=== PATIENT | female | born 1945 | race Caucasian/White ===

== ENCOUNTER → 2020-05-28 | Outpatient (CLI) | payer MEDICARE | LOC: M.MRI 07:16 | PROVIDERS: ATTEND Orthopaedic Surgery | DX: S83.281A Other tear of lateral meniscus, current injury, right knee, initial encounter (principal); S83.241A Other tear of medial meniscus, current injury, right knee, initial encounter; M17.0 Bilateral primary osteoarthritis of knee; M11.061 Hydroxyapatite deposition disease, right knee; M25.461 Effusion, right knee; X58.XXXA Exposure to other specified factors, initial encounter; Y93.89 Activity, other specified; Y92.89 Other specified places as the place of occurrence of the external cause; Y99.8 Other external cause status ==

== ENCOUNTER → 2020-06-10 | Outpatient (CLI) | payer MEDICARE ==
[~2020-06-10] MED LIST: ALPRAZOLAM 0.0.25 M1 PO; DULCOLAX STOOL100 M1 PO; LEVOXYL175 MCG PO; LIPITOR 20 MG T20 M1 PO; OXYBUTYNIN 5 MG5 M2 PO; PERCOCET 5-3251 EACH PO; PRINIVIL40 MG PO; REQUIP 0.25 M0.25 M1 PO; SERTRALINE HCL100 MG PO; XARELTO10 M1 PO
[2020-06-10 11:08] LABS: HEMATOCRIT 44.8 % (37.0-47.0); HEMOGLOBIN 15.6 gm/dL (12.0-15.0); MCH 32.3 pg (26.0-34.0); MCHC 34.9 g/dL (28.0-37.0); MCV 92.5 fL (80.0-100.0); MPV 7.1 fl. (7.2-11.1); RBC 4.84 mil/uL (4.20-5.00); WBC 8.4 thou/uL (4.0-11.0)
[2020-06-10 11:18] LABS: PROTIME 10.3 Seconds (9.20-11.50)
[2020-06-10 11:23] LABS: ALBUMIN 3.8 g/dL (3.4-5.0); CALCIUM 8.9 mg/dL (8.5-10.1); POTASSIUM 4.2 mmol/L (3.5-5.1); TOTAL BILIRUBIN 0.3 mg/dL (<0.1-1.0); TOTAL PROTEIN 7.2 g/dL (6.4-8.2)
[2020-06-10 11:36] LABS: URINE BILIRUBIN NEGATIVE (Negative); URINE BLOOD NEGATIVE (Negative); URINE CLARITY CLEAR; URINE COLOR YELLOW; URINE GLUCOSE-RANDOM NEGATIVE (Negative); URINE KETONES NEGATIVE (Negative); URINE LEUKOCYTES-REFLEX 1+ (Negative); URINE NITRITE-REFLEX NEGATIVE (Negative); URINE PROTEIN NEGATIVE (Negative); URINE UROBILINOGEN 0.2 E.U./dl (0.2-1.0)
[2020-06-10 11:43] LABS: SQUAMOUS 0-3 Few /LPF (0-3); URINE WBC-REFLEX 0-5 Rare /HPF (0-5)
[2020-06-10 11:44] LABS: BACTERIA-REFLEX 1-9 Few /HPF (None Seen); CASTS None Seen /LPF (None Seen); MUCUS 4-6 Moderate strn/LPF (None Seen); URINE RBC 0-2 Rare /HPF (0-2)
[2020-06-10 11:45] LABS: CRYSTALS None Seen /LPF (None Seen)
== END ==
LOC: M.LAB 10:16
PROVIDERS: ATTEND Orthopaedic Surgery
DX: Z01.812 Encounter for preprocedural laboratory examination (principal); Z20.828 Contact with and (suspected) exposure to other viral communicable diseases; M17.11 Unilateral primary osteoarthritis, right knee

== ENCOUNTER 2020-06-17 06:54 | Inpatient (IN) | payer MEDICARE ==
--- NOTE | 2020-06-10 12:27 | EKG ---
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
[~2020-06-17] VITALS: Ht 165.1 cm; Wt 92.5 kg
[~2020-06-17 06:54] MED LIST changes: -DULCOLAX STOOL100 M1 PO; -XARELTO10 M1 PO
[2020-06-17 14:30] VITALS: BP 108/56
--- NOTE | 2020-06-17 19:49 | NUR ---
PT RECIEVEDFROM PACU IN ROOM 106. ALERT AND ORIENTED X4 AND DROWSY. DENIES PAIN. CALL LIGHT WITHIN REACH AND BED IN LOW POSITION. HOURLY ROUNDING DONE FOR PT SAFETY.
[2020-06-17 21:05] VITALS: BP 114/71
[2020-06-18] VITALS (9 sets, daily range): BP systolic 107–161; BP diastolic 53–71
--- NOTE | 2020-06-18 05:09 | NUR ---
ALERT AND ORIENTED. USES BEDPAN AT NIGHT. PAIN WAS RATED 7/10 MOST ASSESSMENTS. USES PAIN MEDS AT HOME FOR CHRONIC KNEE PAIN. RECEIVED PERCOCET Q4. SCD'S IN PLACE. DRAIN TO D/C TUESDAY. HEMOVAC ON RIGHT SIDE OF KNEE. POLAR PACK USED. HOB ELEVATED. INCISION SITE XEROFOAM, MEPALEX IS C/D/I. RECEIVED ALL ABX AND FLUIDS SCHEDULED. WILL CONTINUE TO MONITOR.
[2020-06-18 06:24] LABS: HEMATOCRIT 38.2 % (37.0-47.0); HEMOGLOBIN 13.1 gm/dL (12.0-15.0)
[2020-06-18] MEDS ORDERED: DULCOLAX STOOL100 M1 PO (12:51)
[2020-06-18] MEDS ORDERED: XARELTO10 M1 PO (12:51)
--- NOTE | 2020-06-18 15:36 | NUR ---
cm completed initial assessment to discuss d/c planning. pt lives at home w/spuose. pt is semi-active. pt is independent w/adls. pt's spouse does cleaning and runs errands. pt has walker w/seat, ice machine and cane. pt signed vendor of choice form for [employer] . cm sent referral to [employer] ([phone]), and pt was accepted per maru. pt notified. D/c orders need to been sent was entered by the doctor. cm to cont to follow.
--- NOTE | 2020-06-18 17:25 | NUR ---
HEMO VAC REMOVED PER ORDER. IVF STOPPED. PT UP FREQUENTLY TO BSC. PROGRESSING TOWARDS GOALS.
--- NOTE | 2020-06-18 21:16 | OP ---
[facility] [address] [place] [address] OPERATIVE REPORT Name: ADAM HAMADI Room: [address] M.R.#: [id number] Admission: 06/17/20 Attend Phys: Anne Ordonez Discharge: Date of : 45 Report #: [id number] THIS REPORT FOR: //name// cc: Anya Gonzalez MD, Ghazal A. MD ~ THIS REPORT FOR: //name// CC: Anya Gilliland DATE OF SERVICE: 06/17/2020 PREOPERATIVE DIAGNOSIS: Right knee osteoarthritis. POSTOPERATIVE DIAGNOSIS: Right knee osteoarthritis. PROCEDURE: Right total knee arthroplasty. SURGEON: Kash Ibarra II, DO DIRECTOR OF COMPENSATION: CARROLL Gallagher. ANESTHESIA: General endotracheal. ESTIMATED BLOOD LOSS: 50 mL. ANTIBIOTICS: Ancef preoperatively. DRAINS: Medium Hemovac. COMPLICATIONS: None. CONDITION OF THE PATIENT: Stable to recovery room. IMPLANTS: Listed in operative record and progress note. BRIEF HISTORY: The patient was seen in the preoperative area. Preoperative H and P was performed. Site was marked, questions were answered. Risks and benefits were discussed with the patient in detail about surgery. The patient wished to proceed, assuming all risks. DESCRIPTION OF PROCEDURE: The patient was taken to the operative suite and placed supine on the operating table, given appropriate anesthesia. A well-padded tourniquet was applied to the upper thigh, which was inflated to 300 mmHg after gravity exsanguination. The operative knee was sterilely prepped and [facility] [address] [place] [address] OPERATIVE REPORT Name: ADAM AHMADI Jensen Room: [address] IN [facility].#: [id number] Admission: 06/17/20 Attend Phys: Anne Ordonez Discharge: Date of : 45 Report #: [id number] draped. Surgery began by midline incision. This was carried down to the subcutaneous tissues. A medial parapatellar arthrotomy was performed and carried down to bone. The patella was then everted and excess soft tissues were removed from around the femur. Femoral cutting block was then applied, checked with a drop jose for rotational alignment, pinned in appropriate position and appropriate cuts were made. A 4-in-1 cutting block was then applied, checked for rotational alignment, pinned in appropriate position and appropriate cuts were made. The tibia was then exposed. Excess meniscus was removed. Retractors were placed along the collateral ligaments. The tibial cutting block was then applied, pinned in appropriate position, checked with a drop jose for rotational alignment and slope and appropriate cut was made. The tibial bone was removed. The tibial base plate was then applied, checked for rotational alignment with a drop jose and pinned in appropriate position. The femur was then applied and box cut was reamed. This was then trialed with appropriate spacer, which showed excellent fit and fill and excellent stability of the knee through all range of motion. The patella was reamed in appropriate fashion and sized to appropriate size. Three peg holes were drilled and it was then trialed and showed excellent flexion, extension, excellent tracking of the patella within the groove. These trials were then removed. The tibia was punched in appropriate fashion. Bone ends were cleansed with Pulsavac irrigation and cement was mixed and applied to final implants. These were then malleted into position and held the knee in extension and compressed to allow cement to cure. After it cured, excess was removed using a [place] and osteotome. Wound was then copiously irrigated and the final spacer was malleted into position. The tourniquet was deflated. Hemostasis was obtained with electrocautery. Pain cocktail was injected. PRP gel sprayed throughout internal aspects of the knee. Medium Hemovac drain was applied. Capsule was closed with #2 FiberWire and #1 Vicryl in [id number] fashion. Skin was closed with 2-0 Vicryl and running 3-0 Monocryl. Dermabond and sterile dressing applied. Zoltan wrap and PolarCare applied. The patient transported to recovery room in stable condition. Counts were correct throughout the procedure. <ELECTRONICALLY SIGNED> By: Kash Ibarra II, 06/18/20 2116 [id number] [id number] Ibarra II DO /nt
--- NOTE | 2020-06-19 04:26 | NUR ---
PT PAIN WELL MANAGED RATED 3/10 THIS AM. UP STANDBY WITH WALKER TO THE BATHROOM. ROOM AIR, SALINE LOCKED IV LFA. ALERT AND ORIENTED. POLAR PACK/SHOAIB HOSE IN PLACE. PLAN IS TO DISCHARGE TODAY. WILL CONTINUE TO FOLLOW PLAN OF CARE.
[2020-06-19 06:09] LABS: HEMATOCRIT 34.6 % (37.0-47.0); HEMOGLOBIN 12.1 gm/dL (12.0-15.0)
[2020-06-19 08:00] VITALS: BP 139/81
[2020-06-19 16:00] VITALS: BP 152/79
--- NOTE | 2020-06-19 18:21 | NUR ---
PT A&Ox4, DOES NOT PROCESS COMMANDS WELL WHILE AMBULATING. WILL NEED THERAPY TOMORROW TO RETURN HOME SAFELY. IV PATENT. PAIN CONTROLLED. DENIED N/V. TOLERATING DIET. DRESSING C/D/I. FALL PRECAUTIONS IN PLACE. CALL LIGHT WITHIN REACH. WILL CONTINUE TO MONITOR.
[2020-06-19 20:00] VITALS: BP 169/83
--- NOTE | 2020-06-20 05:50 | NUR ---
PT A&O. MEDS GIVEN ORDERED. PAIN MANAGED WITH PERCOCET. RT KNEE DRESSING C/D/I. SHOAIB J[place], POLAR PACK IN PLACE. UP TO BSC WITH STANDBY ASSIST. PT ON CPM AT THIS MOMENT. CALL LIGHT WITHIN REACH. WILL CONTINUE TO MONITOR.
[2020-06-20 09:01] VITALS: BP 161/68
[2020-06-20 09:34] VITALS: BP 159/76
[2020-06-20 16:23] VITALS: BP 161/68
--- NOTE | 2020-06-20 17:01 | NUR ---
CM SPOKE TO THE PT TO DISUCSS DISCHARGE PLANNING, DME, AND HH. CM ARRANGED HH WITH [facility]. CM FAXED PT'S D/C ORDERS. [facility] TO CALL PT'S SON TO ARRANGE TIME TO VISIT. ELTON SPOKE TO [employer] AND RECEIVED APPROVAL FOR [employer]. PT TO DISPENSE WALKER TO PT. PT TO D/C HOME TODAY. CM WILL REMAIN AVAILABLE TO ASSIST AND FOLLOW NEEDED.
--- NOTE | 2020-06-20 17:55 | NUR ---
PT DISCHARGED TO HOME WITH HH BY WHEEL CHAIR WITH NURSING STAFF AND . IV OUT. PAIN CONTROLLED. DENIED NAUSEA. TOLERATING DIET. DRESSING C/D/I. PERSONAL BELONGINGS SENT WITH PT. PAPER SCRIPT SENT WITH PT.
== END 2020-06-20 18:10 | disposition home health service (06) | DRG 470 ==
LOC: M.PRE → M.ORTHSURG 06:54 → M.TBA 06:54 → M.PRE 07:17 → M.ORTHSURG 14:29 → M.PRE 17:23 → M.ORTHSURG 06-20 18:10
PROVIDERS: Orthopaedic Surgery; ADMIT Internal Medicine; ATTEND Internal Medicine
PROC: 0SRC0J9 Replacement of Right Knee Joint with Synthetic Substitute, Cemented, Open Approach (ICD-10-PCS; principal; 2020-06-17)
DX: M17.0 Bilateral primary osteoarthritis of knee (principal); E03.9 Hypothyroidism, unspecified; F32.9 Major depressive disorder, single episode, unspecified; I10 Essential (primary) hypertension; E78.00 Pure hypercholesterolemia, unspecified; G89.29 Other chronic pain; F17.210 Nicotine dependence, cigarettes, uncomplicated; E66.9 Obesity, unspecified; F41.1 Generalized anxiety disorder; E78.5 Hyperlipidemia, unspecified; K21.9 Gastro-esophageal reflux disease without esophagitis; Z90.710 Acquired absence of both cervix and uterus; Z68.33 Body mass index [BMI] 33.0-33.9, adult; Z79.899 Other long term (current) drug therapy